=== PATIENT | female | born 1930 | race African-American/Black ===

== ENCOUNTER → 2019-11-23 | Outpatient (CLI) | payer MEDICARE, BC | LOC: M.RAD 10:17 | DX: J44.9 Chronic obstructive pulmonary disease, unspecified (principal); J98.4 Other disorders of lung ==

== ENCOUNTER → 2019-11-29 | Outpatient (CLI) | payer MEDICARE, BC ==
--- NOTE | 2019-11-30 17:25 | PF ---
[address] [address] PULMONARY FUNCTION REPORT Name: HOMERODESIREE Jenni Room: [facility] ALEJANDRA Ramos#: [id number] Admission: 11/29/19 Attend Phys: Clem Nation MD Discharge: Date of : 08/18/30 Report #: [id number] THIS REPORT FOR: //name// CC: Clem Nation DATE OF SERVICE: 11/29/2019 FEV1 to FVC ratio is 53% of predicted. FEV1 is 1.05 liters, 58% predicted. FVC is 1.97 liters, 80% of predicted. Total lung capacity 67% of predicted. Residual volume is 65% of predicted. Pulmonary diffusion capacity 62% of predicted. FEV1 increased by 7% after bronchodilator use. 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 There is no significant postbronchodilator change. Pulmonary diffusion capacity is moderately reduced. <ELECTRONICALLY SIGNED> By: Delphine Terrazas MD 11/30/19 1725 0526 [id number] Terrazas MD /nt
== END ==
LOC: M.PUL 09:30
DX: J44.9 Chronic obstructive pulmonary disease, unspecified (principal)

== ENCOUNTER 2020-07-07 10:31 | Inpatient (IN) | payer MEDICARE, BC ==
[~2020-07-07] VITALS: Ht 172.7 cm; Wt 74.8 kg
--- NOTE | ~2020-07-07 | PROC ---
[address] [address] PROCEDURE REPORT Name: DESIREE VALENTIN Room: [address] ADM IN M.R.#: [id number] Admission: 07/07/20 Attend Phys: Bear Acosta Discharge: Date of : 08/18/30 Report #: [id number] THIS REPORT FOR: //name// cc: Clem Nation MD, David L. MD ~ THIS REPORT FOR: //name// For GI report, please see the Provation report in Perceptive 7 content. By: 0654Medical Records Staff TOBI /CHUCKY
[2020-07-07 10:37] VITALS: BP 195/78
[2020-07-07] MEDS ORDERED: VITAMIN C500 M2 PO (10:48)
[2020-07-07] MEDS ORDERED: ASA81BEC PO (10:48)
[2020-07-07] MEDS ORDERED: VITAMIN D310 MC2 PO (10:48)
[2020-07-07] MEDS ORDERED: PREMARIN0.625 MG PO (10:49)
[2020-07-07] MEDS ORDERED: VOLTAREN GEL 1100 G1 TOP (10:49)
[2020-07-07] MEDS ORDERED: COZAAR 25 MG TA25 M1 PO (10:50)
[2020-07-07] MEDS ORDERED: LEVO-T100 MCG PO (10:50)
[2020-07-07] MEDS ORDERED: SLOW FE142 MG PO (10:50)
[2020-07-07] MEDS ORDERED: LOSARTAN-HCTZ1 EAC3 PO (10:51)
[2020-07-07] MEDS ORDERED: OMEPRAZOLE40 MG PO (10:51)
[2020-07-07] MEDS ORDERED: SPIRIVA18 MCG INH (10:52)
[2020-07-07] MEDS ORDERED: B12INJ PO (10:52)
[2020-07-07] MEDS ORDERED: EFFER-K 20 MEQ20 ME1 PO (10:52)
[2020-07-07 11:03] LABS: ABSOLUTE BASOPHILS 0.2 thou/uL (0.0-0.2); ABSOLUTE EOSINOPHILS 0.2 thou/uL (0.0-0.7); ABSOLUTE LYMPHOCYTES 1.1 thou/uL (0.8-5.3); ABSOLUTE MONOCYTES 0.6 thou/uL (0.0-1.2); ABSOLUTE NEUTROPHILS 4.4 thou/uL (1.6-8.1); BASOPHILS 2.4 %; EOSINOPHILS 3.3 %; HEMATOCRIT 21.5 % (37.0-47.0); LYMPHOCYTES 17.6 %; MCH 25.3 pg (26.0-34.0); MCHC 32.1 g/dL (28.0-37.0); MCV 78.9 fL (80.0-100.0); MONOCYTES 8.6 %; MPV 10.4 fl. (7.2-11.1); NUCLEATED RBCS 0 /100WBC; PLATELET COUNT* 157 thou/uL (150-400); POLYS 68.1 %; RBC 2.73 mil/uL (4.20-5.00); RDW-CV 21.7 % (10.5-14.5); WBC 6.4 thou/uL (4.0-11.0)
[2020-07-07 11:11] LABS: HEMOGLOBIN 6.9 gm/dL (12.0-15.0)
[2020-07-07 11:12] LABS: POTASSIUM 3.5 mmol/L (3.5-5.1)
[2020-07-07 11:16] LABS: ALBUMIN 3.1 g/dL (3.4-5.0); TOTAL BILIRUBIN 0.6 mg/dL (<0.1-1.0); TOTAL PROTEIN 6.8 g/dL (6.4-8.2)
[2020-07-07 11:20] LABS: APTT 24.5 Seconds (25.0-31.3); PROTIME 10.7 Seconds (9.20-11.50)
[2020-07-07 12:08] LABS: ANISOCYTOSIS 2+; HYPOCHROMASIA 3+; PLATELET ESTIMATE ADEQUATE
[2020-07-07 12:09] LABS: MICROCYTES 2+; SCHISTOCYTES 1+
[2020-07-07 14:31] VITALS: BP 215/72
[2020-07-07 17:37] LABS: HEMATOCRIT 27.3 % (37.0-47.0)
[2020-07-07 17:39] LABS: HEMOGLOBIN 9.7 gm/dL (12.0-15.0)
[2020-07-07 17:50] LABS: PROTIME 10.4 Seconds (9.20-11.50)
[2020-07-07 20:00] VITALS: BP 170/68
[2020-07-07 23:53] VITALS: BP 188/67
[2020-07-08 04:00] VITALS: BP 132/60
[2020-07-08 04:49] LABS: CHOLESTEROL 97 mg/dL (<200); HDL CHOLESTEROL 52 mg/dL (>40); LDL CHOLESTEROL 36 mg/dL (<100); TC:HDL 1.9 Ratio (Not establshd); TRIGLYCERIDE 46 mg/dL (<150); VLDL 9 mg/dL (<40)
[2020-07-08 05:22] LABS: SERUM ASSESSMENT Clear
[2020-07-08 07:50] VITALS: BP 185/65
[2020-07-08 11:25] VITALS: BP 163/61
[2020-07-08 15:45] VITALS: BP 175/79
--- NOTE | 2020-07-08 17:21 | 2DMMODE ---
[place] [address] 2 D/M-MODE ECHOCARDIOGRAM Name: DESIREE VALENTIN Room: [facility] IN .[place].#: [id number] Admission: 07/07/20 Attend Phys: Gaetano Junior Discharge: Date of : 08/18/30 Date of Service: 07/08/20 1721 Report #: [id number] THIS REPORT FOR: cc: Clem Nation MD, David L. MD Holkins, John M. MD [facility] ~ APPROVED REPORT Study performed: 07/08/2020 14:29:17 EXAM: Comprehensive 2D, Doppler, and color-flow Echocardiogram Patient Location: In-Patient Room #: [facility] Status: routine BSA: 1.86 HR: 75 bpm BP: 185/65 mmHg Rhythm: NSR Other Information Study Quality: Good Indications CVA/TIA Echo Enhancing Agent Indication: Rule out Shunt Agent(s) / Amount(s) Used: Agitated Saline 10 cc 2D Dimensions IVSd: 11.45 (7-11mm) LVOT Diam: 20.03 (18-24mm) LVDd: 47.59 mm PWd: 11.49 (7-11mm) Ascending Ao: 30.92 (22-36mm) LVDs: 28.05 (25-40mm) Aortic Root: 30.06 mm Volumes Left Atrial Volume (Systole) LA ESV Index: 45.00 mL/m2 Aortic Valve AoV Peak Ephraim.: 1.85 m/s AO Peak Gr.: 13.62 mmHg LVOT Max P.14 mmHg AO Mean Gr.: 6.44 mmHg LVOT Mean P.88 [place] [address] 2 D/M-MODE ECHOCARDIOGRAM Name: DESIREE VALENTIN Room: [address] IN M.R.#: [id number] Admission: 07/07/20 Attend Phys: Gaetano Junior Discharge: Date of : 08/18/30 Date of Service: 07/08/20 1721 Report #: [id number] LVOT Max V: 1.59 m/s AO V2 VTI: 32.83 cm LVOT Mean V: 1.01 m/s RADHA (VTI): 3.34 cm2 LVOT V1 VTI: 34.77 cm Mitral Valve E/A Ratio: 1.16 MV Decel. Time: 232.06 ms MV E Max Ephraim.: 1.02 m/s MV PHT: 67.30 ms MVA (PHT): 3.27 cm2 TDI E/Lateral E': 10.20 E/Medial E': 9.27 Medial E' Ephraim.: 0.11 m/s Lateral E' Ephraim.: 0.10 m/s Pulmonary Valve PV Peak Ephraim.: 1.08 m/s PV Peak Gr.: 4.63 mmHg Tricuspid Valve RAP Estimate: 5.00 mmHg TR Peak Gr.: 28.92 mmHg RVSP: 33.00 mmHg PA Pressure: 33.00 mmHg Left Ventricle The left ventricle is normal size. There is normal LV segmental wall motion. Mild concentric left ventricular hypertrophy. Left ventricular systolic function is normal. The left ventricular ejection fraction is within the normal range. LVEF is 60%. The left ventricular diastolic function is normal. Right Ventricle The right ventricle is normal size. The right ventricular systolic function is normal. Atria Left atrium is mildly dilated. The interatrial septum is intact with no evidence for an atrial septal defect. The right atrium size is normal. Aortic Valve The aortic valve is normal in structure. No aortic regurgitation is present. There is no aortic valvular stenosis. Mitral Valve The mitral valve is normal in structure. [place] [address] 2 D/M-MODE ECHOCARDIOGRAM Name: DESIREE VALENTIN Room: [address] IN .R.#: [id number] Admission: 07/07/20 Attend Phys: Gaetano Junior Discharge: Date of : 08/18/30 Date of Service: 07/08/20 1721 Report #: [id number] No evidence of mitral valve stenosis. Tricuspid Valve The tricuspid valve is normal in structure. Trace tricuspid regurgitation. Mild pulmonary hypertension. Pulmonic Valve The pulmonary valve is normal in structure. There is no pulmonic valvular regurgitation. Great Vessels The aortic root is normal in size. IVC is normal in size and collapses >50% with inspiration. Pericardium There is no pericardial effusion. <Conclusion> The left ventricle is normal size. Mild concentric left ventricular hypertrophy. Left ventricular systolic function is normal. The left ventricular ejection fraction is within the normal range. LVEF is 60%. The left ventricular diastolic function is normal. The right ventricle is normal size. Left atrium is mildly dilated. The right atrium size is normal. The aortic valve is normal in structure. The mitral valve is normal in structure. Trace mitral regurgitation. The tricuspid valve is normal in structure. Trace tricuspid regurgitation. Mild pulmonary hypertension. IVC is normal in size and collapses >50% with inspiration. There is no pericardial effusion. There is normal LV segmental wall motion. The interatrial septum is intact with no evidence for an atrial septal defect. <ELECTRONICALLY SIGNED> By: Dima Garcia MD, FACC 07/08/20 172 172 20 Dima Garcia MD, FACC /INF
[2020-07-08 20:00] VITALS: BP 171/59
[2020-07-08 23:56] VITALS: BP 169/62
[2020-07-09 04:00] VITALS: BP 152/56
[2020-07-09 05:29] LABS: HEMATOCRIT 26.9 % (37.0-47.0); HEMOGLOBIN 8.7 gm/dL (12.0-15.0); MCHC 32.3 g/dL (28.0-37.0); MCV 80.8 fL (80.0-100.0); RBC 3.33 mil/uL (4.20-5.00)
[2020-07-09 05:35] LABS: CALCIUM 8.3 mg/dL (8.5-10.1); CREATININE 0.9 mg/dL (0.6-1.3); MAGNESIUM 1.5 mg/dL (1.8-2.4)
[2020-07-09 05:53] LABS: POTASSIUM 2.7 mmol/L (3.5-5.1)
[2020-07-09 07:25] VITALS: BP 152/56
[2020-07-09 07:40] VITALS: BP 170/74
[2020-07-09 10:06] VITALS: BP 129/83
[2020-07-09 12:00] VITALS: BP 173/77
--- NOTE | 2020-07-09 14:32 | EKG ---
[place] [address] ELECTROCARDIOGRAM REPORT Name: HOMERODESIREE Jenni Room: [address] ADM IN .R.#: [id number] Admission: 07/07/20 Attend Phys: Gaetano Junior Discharge: Date of : 08/18/30 Date of Service: 07/07/20 1039 Report #: [id number] THIS REPORT FOR: //name// [facility] ED Test Date: 2020-07-07 Test Time: 10:39:47 Pat Name: DESIREE VALENTIN Department: Room: [facility] Gender: F Vp [employer] Planning: : 1930 Requested By: Umberto Lovelace Order Number: [id number] MD: Dima Garcia Measurements Intervals [place] Rate: 73 P: 70 DC: 171 QRS: 33 QRSD: 109 T: 12 QT: 435 QTc: 480 Interpretive Statements Sinus rhythm RSR' in V1 or V2, probably normal variant Borderline prolonged QT interval Compared to ECG 01/05/2009 08:47:25 RSR' in V1 or V2 now present Sinus arrhythmia no longer present Electronically Signed On 07-09-2020 14:32:21 CDT by Dima Garcia [email or web address] <ELECTRONICALLY SIGNED> By: Dima Garcia MD, FAC 07/09/20 1432 1039 1039 Dima Garcia MD, FAC /EPI
--- NOTE | 2020-07-09 14:40 | EKG ---
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 : 1930 Requested By: Gaetano Junior Order Number: [id number] Jus MD: Dima Garcia Measurements Intervals [place] Rate: 71 P: 68 NH: 171 QRS: 30 QRSD: 93 T: 31 QT: 457 QTc: 497 Interpretive Statements Sinus rhythm with pac's RSR' in V1 or V2, probably normal variant Borderline T abnormalities, anterior leads Borderline prolonged QT interval Compared to ECG 07/07/2020 10:39:47 T-wave abnormality now present Electronically Signed On 07-09-2020 14:40:19 CDT by Dima Garcia [email or web address] <ELECTRONICALLY SIGNED> By: Dima Garcia MD, [facility] 07/09/20 1440 5 5 Dima Garcia MD, FAC /EPI
[2020-07-09 19:30] VITALS: BP 122/55
[2020-07-10] VITALS: BP 119/61
[2020-07-10 04:00] VITALS: BP 168/62
[2020-07-10 04:19] LABS: HEMATOCRIT 29.2 % (37.0-47.0); HEMOGLOBIN 9.2 gm/dL (12.0-15.0); MCH 25.7 pg (26.0-34.0); MCHC 31.6 g/dL (28.0-37.0); MCV 81.3 fL (80.0-100.0); MPV 10.1 fl. (7.2-11.1); RBC 3.59 mil/uL (4.20-5.00); RDW-CV 22.6 % (10.5-14.5); WBC 8.3 thou/uL (4.0-11.0)
[2020-07-10 04:51] LABS: ALBUMIN 3.1 g/dL (3.4-5.0); CALCIUM 8.7 mg/dL (8.5-10.1); CREATININE 1.1 mg/dL (0.6-1.3); MAGNESIUM 2.1 mg/dL (1.8-2.4); TOTAL BILIRUBIN 0.5 mg/dL (<0.1-1.0); TOTAL PROTEIN 7.2 g/dL (6.4-8.2)
[2020-07-10 05:22] LABS: POTASSIUM 4.4 mmol/L (3.5-5.1)
[2020-07-10 08:10] VITALS: BP 123/46
[2020-07-10 11:32] VITALS: BP 123/46
--- NOTE | 2020-07-11 03:46 | CON ---
[address] [address] CONSULTATION Name: REIKATrenaDESIREE Arteaga Room: [address] IN M.R.#: [id number] Admission: 07/07/20 Attend Phys: Bear Acosta Discharge: 07/10/20 Date of : 08/18/30 Report #: [id number] THIS REPORT FOR: //name// cc: Clem Nation MD, David L. MD ~ THIS REPORT FOR: //name// CC: Clem Junior DATE OF SERVICE: 07/07/2020 HISTORY OF PRESENT ILLNESS: This is an 89-year-old female patient who said she had some episode of numbness on the right side. It predominantly involved the right arm. It is mostly in the ulnar distribution. It started spontaneously without any trauma. It looks like this is going on for a couple of months and just became worse. REVIEW OF SYSTEMS: Positive for cholecystectomy, hysterectomy, and right hip replacement in 1980s. She had some foot surgeries, appendectomy, and tonsillectomy. She does not have any involvement of the face of the right lower extremity. She does not have any motor deficit. She is able to ambulate without much difficulty. She denies any eye, ENT, cardiac, respiratory, GI, , musculoskeletal, constitutional, dermatological, psychiatric, throat, allergic symptom associated with these symptomatology. Her hemoglobin is only 6.9. She is not aware of any hemoglobin in that regard. Her last hemoglobin here was in 2008 and that was normal. PAST MEDICAL HISTORY: Positive for this numbness, which is going on for some time. She does have a history of hypertension and hypothyroidism. FAMILY HISTORY: Unremarkable. SOCIAL HISTORY: She does not smoke and does not drink alcohol. PHYSICAL EXAMINATION: Indicates she is alert and responsive. She can follow simple commands. Examination indicates she is alert, responsive, oriented. Her speech, concentration, fund of knowledge, and memory is at her baseline. Cranial nerve examination 2-12 looks unremarkable. Strength, sensation, reflexes and tone looks unremarkable. She has only subjective feeling of decreased numbness in the right ulnar distribution. Her pulses are palpable. She has no cerebellar sign. I could not look at the patient's fundus. Her hearing and vision looks adequate. She has no thyroid mass. She is a well-developed individual. She does not have any dysmorphic features of eyes, ears, and face. Her vision and hearing looks adequate. Blood pressure is 215/72, respirations 21, pulse is 67, temperature 98.8[place] [address] CONSULTATION Name: DESIREE VALENTIN Room: [address] IN .R.#: [id number] Admission: 07/07/20 Attend Phys: Bear Acosta Discharge: 07/10/20 Date of : 08/18/30 Report #: [id number] diminished hemoglobin at 6.9. I got a stat carotid Doppler done on her, which was mostly unremarkable. The blood vessels are tortuous. IMPRESSION: I am not sure what the symptoms are from. It can be cubital tunnel syndrome and it can be a neck problem. Brain problem is possible, but is considered less likely, but is not fully excluded. The problem is that she has a hip joint put in 1980s. I do not know whether it was MRI compatible or not and I need to talk to MRI people. If it is compatible, we might do an MRI of the C-spine and the brain as the first testing. I did put her on aspirin because her hemoglobin is so low. She in fact is getting transfusion. I discussed all this plan with the patient and she is agreeable with the plan. Thank you very much for this referral. <ELECTRONICALLY SIGNED> By: Piero Ortiz MD 07/11/20 0346 1742 [id number] Ortiz MD /nt
--- NOTE | 2020-07-11 13:08 | PATH ---
[facility] [address] [place] [address] PATHOLOGY RPT PROCEDURE Name: DESIREE VALENTIN Room: [address] IN M.R.#: [id number] Admission: 07/07/20 Date of : [birth year]/18/[birth year] Discharge: 07/10/20 Report #: [id number] Path Case #: [id number] [facility] Accession Number: [id number] . 01 Material submitted: . colon - DESCENDING COLON POLYP. Modifiers: descending . 01 Clinician provided ICD-10: I16.1 . 02 Diagnosis: Descending colon polyp: - Tubular adenoma, negative for high-grade dysplasia. (FELIPE:pit 07/11/2020) QTP 07/11/2020 1056 Local . 02 Electronically signed: . Kiel Sweet MD, Pathologist NPI- [id number] . 01 Gross description: . The specimen is received in formalin, labeled "Desiree Nails, descending colon polyp". Received is a segment of pale beach soft tissue measuring 0.5 cm in maximum dimensions. The specimen is submitted entirely in cassette A1. (CAA; 07/10/2020) QA/QA 07/10/2020 1017 Local . 02 Pathologist provided ICD-10: D12.4 . 02 CPT . 551684 Specimen Comment: A courtesy copy of this report has been sent to [phone] Specimen Comment: [phone], Specimen Comment: Report sent to ,DR LAU / DR BHANDARI Performed at: [address] [facility] [address], [place] [id number] MD Nino Mabry MD Phone: [phone] Performed at: [address] [facility] [address] [facility] [place] [place] [id number] MD Kiel Sweet MD Phone: [phone]
[2020-07-15 09:26] LABS: GLYCOHEMOGLOBIN (HGB A1C) 5.7
== END 2020-07-10 12:15 | disposition home or self-care (01) | DRG 812 ==
LOC: M.ERS 10:31 → M.3W 11:34 → M.TBA-ER 11:34 → M.3W 14:56
PROVIDERS: Family Medicine; Internal Medicine; ADMIT Internal Medicine; ATTEND Internal Medicine
PROC: 30233N1 Transfusion of Nonautologous Red Blood Cells into Peripheral Vein, Percutaneous Approach (ICD-10-PCS; principal; 2020-07-07)
PROC: 0DJ08ZZ Inspection of Upper Intestinal Tract, Via Natural or Artificial Opening Endoscopic (ICD-10-PCS; 2020-07-09)
PROC: 0DBM8ZZ Excision of Descending Colon, Via Natural or Artificial Opening Endoscopic (ICD-10-PCS; 2020-07-09)
DX: D64.9 Anemia, unspecified (principal); I16.1 Hypertensive emergency; C18.9 Malignant neoplasm of colon, unspecified; K50.90 Crohn's disease, unspecified, without complications; D12.4 Benign neoplasm of descending colon; K57.90 Diverticulosis of intestine, part unspecified, without perforation or abscess without bleeding; E03.9 Hypothyroidism, unspecified; I10 Essential (primary) hypertension; G56.21 Lesion of ulnar nerve, right upper limb; K64.4 Residual hemorrhoidal skin tags; Z96.641 Presence of right artificial hip joint; Z96.1 Presence of intraocular lens; Z20.828 Contact with and (suspected) exposure to other viral communicable diseases; Q27.33 Arteriovenous malformation of digestive system vessel; Z90.49 Acquired absence of other specified parts of digestive tract; Z90.710 Acquired absence of both cervix and uterus; Z98.42 Cataract extraction status, left eye; Z98.41 Cataract extraction status, right eye; Z79.82 Long term (current) use of aspirin; Z79.899 Other long term (current) drug therapy; Z88.8 Allergy status to other drugs, medicaments and biological substances